=== PATIENT | male | born 1945 | race Caucasian/White ===

== ENCOUNTER 2019-10-24 19:23 | Emergency (ER) | payer MEDICARE ==
[~2019-10-24] VITALS: Ht 172.7 cm; Wt 113.4 kg
[2019-10-24] MEDS ORDERED: LIPITOR10 MG PO (19:32)
[2019-10-24] MEDS ORDERED: NORVASC 2.5 MG2.5 M1 PO (19:32)
[2019-10-24] MEDS ORDERED: ARICEPT10 M1 PO (19:33)
[2019-10-24] MEDS ORDERED: CARBIDOPA-LEVO1 EAC9 PO (19:33)
[2019-10-24] MEDS ORDERED: CELEXA20 MG PO (19:33)
[2019-10-24] MEDS ORDERED: PROSCAR 5MG TABL5 MG PO (19:33)
[2019-10-24] MEDS ORDERED: OMEPRAZOLE 20 M20 M1 PO (19:34)
[2019-10-24] MEDS ORDERED: ZOFRAN4 MG PO (19:34)
[2019-10-24] MEDS ORDERED: NAMENDA 10 MG T10 MG PO (19:34)
[2019-10-24] MEDS ORDERED: TIROSINT88 MCG PO (19:34)
[2019-10-24] MEDS ORDERED: TAMSULOSIN HCL0.4 MG PO (19:34)
[2019-10-24] MEDS ORDERED: MECLIZINE HCL25 M1 PO (19:34)
[2019-10-24 20:04] LABS: ABSOLUTE EOSINOPHILS 0.3 thou/uL (0.0-0.7); ABSOLUTE LYMPHOCYTES 1.2 thou/uL (0.8-5.3); ABSOLUTE MONOCYTES 0.8 thou/uL (0.0-1.2); ABSOLUTE NEUTROPHILS 9.3 thou/uL (1.6-8.1); BASOPHILS 0.4 %; EOSINOPHILS 2.8 %; HEMATOCRIT 45.6 % (42.0-52.0); HEMOGLOBIN 15.5 gm/dL (14.0-18.0); MCH 31.5 pg (26.0-34.0); MCHC 34.1 g/dL (28.0-37.0); MCV 92.6 fL (80.0-100.0); MONOCYTES 7.1 %; MPV 8.2 fl. (7.2-11.1); NUCLEATED RBCS 0 /100WBC; PLATELET COUNT* 308 thou/uL (150-400); POLYS 79.7 %; RBC 4.92 mil/uL (4.50-6.00); WBC 11.6 thou/uL (4.0-11.0)
[2019-10-24 20:07] LABS: CALCIUM 8.5 mg/dL (8.5-10.1); POTASSIUM 4.1 mmol/L (3.5-5.1)
[2019-10-24 20:12] LABS: ALBUMIN 3.2 g/dL (3.4-5.0); TOTAL BILIRUBIN 0.8 mg/dL (<0.1-1.0); TOTAL PROTEIN 7.1 g/dL (6.4-8.2)
[2019-10-24 23:43] VITALS: BP 124/76
--- NOTE | 2019-10-25 15:39 | EKG ---
[place] [address] ELECTROCARDIOGRAM REPORT Name: ERICK ECHEVERRIA Room: [facility]#: [id number] Admission: 10/24/19 Attend Phys: Discharge: 10/24/19 Date of : 41 Date of Service: 10/24/191930 Report #: [id number] THIS REPORT FOR: //name// [facility] ED Test Date: 2019-10-24 Test Time: 19:31:09 Pat Name: ERICK ECHEVERRIA Department: Room: Gender: [employer]: : 1945 Requested By: Akosua Hammonds Order Number: [id number] Leanne MD: Dagoberto Bennett Measurements Intervals [place] Rate: 65 P: 1 HI: 222 QRS: -49 QRSD: 78 T: 117 QT: 515 QTc: 536 Interpretive Statements Sinus rhythm Prolonged HI interval Left anterior fascicular block Borderline abnrm T, anterolateral leads Prolonged QT interval No previous ECG available for comparison Electronically Signed On 10-25-2019 15:38:38 CDT by Dagoberto Bennett [email or web address] <ELECTRONICALLY SIGNED> By: Dagoberto Bennett MD, [facility] 10/25/19 1538 30 30 Dagoberto Bennett MD, [facility] /EPI
== END 2019-10-24 23:45 | disposition home or self-care (01) ==
LOC: M.ERS 19:23
PROVIDERS: Personal Emergency Response Attendant
DX: S00.83XA Contusion of other part of head, initial encounter (principal); M25.551 Pain in right hip; H57.11 Ocular pain, right eye; Z88.0 Allergy status to penicillin; Z79.899 Other long term (current) drug therapy; W06.XXXA Fall from bed, initial encounter; Y93.89 Activity, other specified; Y92.89 Other specified places as the place of occurrence of the external cause; Y99.8 Other external cause status